=== PATIENT | female | born 1995 | race Caucasian/White ===

== ENCOUNTER 2016-11-14 16:49 | Emergency (ER) | payer BC ==
[~2016-11-14] VITALS: Ht 165.1 cm; Wt 53.4 kg
[~2016-11-14 16:49] MED LIST: BCPILLS PO; CEPH500C2 PO; SULF800T23 PO
[2016-11-14 16:55] VITALS: TEMP 36.6; Ht 165.1 cm; Wt 53.4 kg
[2016-11-14] MEDS ORDERED: HYDR-5688 PO (17:27)
[2016-11-14] MEDS ORDERED: SULF800T23 PO (17:32)
[2016-11-14 17:38] VITALS: BP 124/78; PULSE 69; O2SAT 97
--- NOTE | 2016-11-15 15:28 | EMERGENCY ROOM VISIT NOTE ---
ED Visit Note First contact with patient: 16:59 CHIEF COMPLAINT: I think I have an abscess in my right armpit. HISTORY OF PRESENT ILLNESS: Ms. Arreola is an 20-year-old white female who ambulates into the ED accompanied by a male friend concerned about a possible abscess in the right axillary area. Historically patient reports she had abscess in the right axillary area in September 2016. An I&D procedure was performed and on her microbiology she grew out MRSA. Additionally patient reports she was assessed at [facility] and was started on Bactrim 2 days ago. Patient reports 4 days ago she noticed a small lump in the right axillary area. Since that time she reports it feels like its getting larger and is much more tender. Additionally she noted some mild erythema over the lump. Currently she describes her pain as a stinging sensation that becomes sharp with palpation. She rates her discomfort 7/10. Her pain is nonradiating. Her pain worsens with palpation. She has not identified any alleviating factors related to the pain. She has not taken any medications for pain prior to arrival at the hospital. She denies any associated symptoms including fevers, chills, sweats, other skin eruptions, skin color changes, chest pain, shortness of breath, abdominal pain, decreased appetite, nausea, vomiting, right upper extremity weakness/numbness/tingling. REVIEW OF SYSTEMS: As noted above in History of Present Illness; 8 body systems were reviewed with the patient and found to be negative unless noted above otherwise. PAST MEDICAL HISTORY: As noted above, status post adenoidectomy. CURRENT MEDICATION: control, Bactrim. ALLERGIES TO MEDICATION: Patient denies. 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 PHYSICAL EXAM: Vital Signs: Date Time Temp Pulse Resp B/P Pulse Ox O2 Delivery O2 Flow Rate FiO2 11/14/16 17:38 69 16 124/78 97 11/14/16 16:55 36.6 76 18 120/82 95 Room Air General: 20 year-old white female in mild distress due to pain, nontoxic appearing, afebrile and hemodynamically stable. Neurological: Awake, alert and oriented to person, place and time. Answering questions appropriately and following commands. Skin: Warm, dry and pink. Right Axillary Area: There is an indurated area which measures about 3.8 cm in diameter. The lesion is not fluctuant. There is no pointing or drainage. Area is mildly erythematous but not edematous. Skin does not appear cellulitic. No lymphangitis. No local lymphadenopathy. Thorax: Lungs sounds are clear to auscultation and equal bilaterally with symmetrical chest wall movement. No wheezing, rales or rhonchi. No increased respiratory effort. Abdomen: Flat, soft and nontender. Positive bowel sounds in all quadrants. No guarding or rigidity. ED COURSE: Patient is assessed as noted above. Patient was educated about her condition and instructed on her treatment plan; she verbalized understanding and agreement with this plan. CLINICAL IMPRESSION: Early right axillary abscess. DISPOSITION: Patient discharged to home in stable condition accompanied by male friend; prior to departure she was reassessed and subjectively reported she was feeling the same. PLAN: Patient was encouraged to continue Bactrim until completed. Patient was given a prescription for [place] for pain control and encouraged to alternate with ibuprofen. Additionally on narcotic prescriptions were reviewed with the patient. Her name was reviewed in a state database and no red flags were identified. Patient is to follow-up with S or return to the ED in 36-48 hours for recheck of the abscess or sooner for worsening/uncontrolled pain, fevers, increasing redness/swelling, puslike drainage or any new/concerning symptoms.
== END 2016-11-14 17:39 | disposition home or self-care (01) ==
LOC: C.EDC 17:10
DX: L02.411 Cutaneous abscess of right axilla (principal); Z98.890 Other specified postprocedural states

== ENCOUNTER 2017-11-22 18:27 | Emergency (ER) | payer BC ==
[~2017-11-22] VITALS: Ht 162.6 cm; Wt 53.8 kg
[~2017-11-22 18:27] MED LIST changes: -CEPH500C2 PO
[2017-11-22 18:56] VITALS: BP 113/73; PULSE 89; TEMP 37.1; O2SAT 99; Ht 162.6 cm; Wt 53.8 kg
== END 2017-11-22 19:45 | disposition left against medical advice (07) ==
LOC: C.EDB 18:28 → C.EDC 19:45
DX: Z53.21 Procedure and treatment not carried out due to patient leaving prior to being seen by health care provider (principal)

== ENCOUNTER 2017-11-23 14:58 | Emergency (ER) | payer BC ==
[~2017-11-23] VITALS: Ht 162.6 cm; Wt 53.5 kg
[2017-11-23 15:03] VITALS: TEMP 36.8; Ht 162.6 cm; Wt 53.5 kg
--- NOTE | 2017-11-23 15:21 | EMERGENCY ROOM VISIT NOTE ---
History First contact with patient: 15:08 Chief Complaint: CONGESTION Stated Complaint: SORE NECK ,COLD SX History of Present Illness The patient is a 21 year old female who presents to the Emergency Room via private vehicle accompanied by female with complaints of "sore neck, cold symptoms". The patient states that about 1 week ago she began with upper respiratory infection symptoms such as stuffy nose and cough. She states that 3 days ago she had fever 1 day, and also to time began with neck stiffness, headache, and back pain. She states that now she is feeling better, but rates the overall soreness in her neck and back as a 4/10. There is no production to the cough and no cough currently. There is no sore throat. She denies any medical problems. Her immunizations are up-to-date. She did not receive the influenza vaccination this year. There is minimal nausea. She associates minimal lower abdominal cramping this morning which she believes secondary to beginning her menstrual cycle. She denies any smoking, coughing up any blood, close contacts with meningitis, history of meningitis, or chest pain. Review of Systems A complete 10-point Review of Systems was discussed with the patient, with pertinent positives and negatives listed in the History of Present Illness. All remaining Review of Systems questions can be considered negative unless otherwise specified. Past Medical/Surgical History non contributory Family History non contributory Social History Smoking Status: Never Smoker Pt. lives locally and is a student Current/Historical Medications Scheduled Control Pills ( Control Pills), 1 TAB PO DAILY Physical Exam Vital Signs Date Time Temp Pulse Resp B/P (MAP) Pulse Ox O2 Delivery O2 Flow Rate FiO2 11/23/17 16:37 74 18 108/70 97 Room Air 11/23/17 15:36 Room Air 11/23/17 15:03 36.8 76 20 109/69 98 Room Air Physical Exam VITAL SIGNS - Vital signs and nursing notes were reviewed. Stable. GENERAL - 21-year-old female appearing her stated age who is in no acute distress. Communicates well with provider and answers questions appropriately. SKIN - Without rashes. HEAD - NC/AT. EYES - PERRL with EOMI bilaterally. Sclera anicteric. EARS - No deformities of external structures noted on gross examination bilaterally. No pain elicited with palpation of the tragus bilaterally. External auditory canals without discharge or otorrhea. Tympanic membranes pearly aguirre without retraction or bulging. No fluid or purulent material visualized behind the TM. Handle of malleus, umbo, cone of light, pars tensa/ flaccid all easily visualized. NOSE - Midline and without cyanosis. No epistaxis or purulent drainage noted. Septum midline without deviation or septal hematoma noted. MOUTH/OROPHARYNX - Without perioral cyanosis. Buccal mucosa pink and moist and without leukoplakia. Tongue midline with equal elevation of palate bilaterally. No tonsillar hypertrophy, erythema, or exudates noted. Fair dentition noted. NECK - Neck with FROM. Supple to palpation. minimal anterior cervical lymphadenopathy noted. No nuchal rigidity. LUNGS - Chest wall symmetric without accessory muscle use, intercostals retractions, or central cyanosis. Normal vesicular breath sounds CTA B/L. No wheezes, rales, or rhonchi appreciated. CARDIAC - RRR with S1/S2. No murmur, rubs, or gallops appreciated. NEUROLOGIC - Cranial nerves II through XII grossly intact. Sensory intact to light touch throughout. PSYCH - A&O, and cooperates fully with examiner. Pt is very pleasant and interacts well with examiner. Medical Decision & Procedures Laboratory Results 11/23/17 15:29 Red Blood Count 4.33, Mean Corpuscular Volume 91.5, Mean Corpuscular Hemoglobin 30.7, Mean Corpuscular Hemoglobin Concent 33.6, Mean Platelet Volume 10.1, Neutrophils (%) (Auto) 51.7, Lymphocytes (%) (Auto) 31.4, Monocytes (%) (Auto) 14.5, Eosinophils (%) (Auto) 2.1, Basophils (%) (Auto) 0.3, Neutrophils # (Auto ) 1.71, Lymphocytes # (Auto) 1.04, Monocytes # (Auto) 0.48, Eosinophils # (Auto ) 0.07, Basophils # (Auto) 0.01 11/23/17 15:29 Test 11/23/17 15:27 11/23/17 15:29 11/23/17 15:55 Influenza Type A Antigen Neg for Influ A (NEG) Influenza Type B Antigen Neg for Influ B (NEG) White Blood Count 3.31 K/uL (4.8-10.8) Red Blood Count 4.33 M/uL (4.2-5.4) Hemoglobin 13.3 g/dL (12.0-16.0) Hematocrit 39.6 % (37-47) Mean Corpuscular Volume 91.5 fL (80-100) Mean Corpuscular Hemoglobin 30.7 pg (25-34) Mean Corpuscular Hemoglobin Concent 33.6 g/dl (32-36) Platelet Count 145 K/uL (130-400) Mean Platelet Volume 10.1 fL (7.4-10.4) Neutrophils (%) (Auto) 51.7 % Lymphocytes (%) (Auto) 31.4 % Monocytes (%) (Auto) 14.5 % Eosinophils (%) (Auto) 2.1 % Basophils (%) (Auto) 0.3 % Neutrophils # (Auto) 1.71 K/uL (1.4-6.5) Lymphocytes # (Auto) 1.04 K/uL (1.2-3.4) Monocytes # (Auto) 0.48 K/uL (0.11-0.59) Eosinophils # (Auto) 0.07 K/uL (0-0.5) Basophils # (Auto) 0.01 K/uL (0-0.2) RDW Standard Deviation 42.1 fL (36.4-46.3) RDW Coefficient of Variation 12.3 % (11.5-14.5) Immature Granulocyte % (Auto) 0.0 % Immature Granulocyte # (Auto) 0.00 K/uL (0.00-0.02) Anion Gap 7.0 mmol/L (3-11) Est Creatinine Clear Calc Drug Dose 78.1 ml/min Estimated GFR () 97.4 Estimated GFR (Non- 84.1 BUN/Creatinine Ratio 13.0 (10-20) Calcium Level 8.8 mg/dl (8.5-10.1) Total Bilirubin 0.2 mg/dl (0.2-1) Aspartate Amino Transf (AST/SGOT) 13 U/L (15-37) Alanine Aminotransferase (ALT/SGPT) 16 U/L (12-78) Alkaline Phosphatase 46 U/L (45-117) Total Creatine Kinase 49 U/L (26-192) Creatine Kinase MB < 0.5 ng/ml (0.5-3.6) Creatine Kinase MB Ratio (0-3.0) Total Protein 7.2 gm/dl (6.4-8.2) Albumin 3.5 gm/dl (3.4-5.0) Globulin 3.7 gm/dl (2.5-4.0) Albumin/Globulin Ratio 0.9 (0.9-2) Urine Color YELLOW Urine Appearance CLEAR (CLEAR) Urine pH 6.5 (4.5-7.5) Urine Specific [place] 1.033 (1.000-1.030) Urine Protein 1+ (NEG) Urine Glucose (UA) NEG (NEG) Urine Ketones TRACE (NEG) Urine Occult Blood NEG (NEG) Urine Nitrite NEG (NEG) Urine Bilirubin NEG (NEG) Urine Urobilinogen NEG (NEG) Urine Leukocyte Esterase NEG (NEG) Urine WBC (Auto) 5-10 /hpf (0-5) Urine RBC (Auto) 0-4 /hpf (0-4) Urine Hyaline Casts (Auto) 1-5 /lpf (0-5) Urine Epithelial Cells (Auto) >30 /lpf (0-5) Urine Bacteria (Auto) 1+ (NEG) Urine Renal Epithelial Cells /lpf (0-5) Urine Test NEG (NEG) Medical Decision Pt. was seen and evaluated as above. After obtaining a thorough history and physical examination blood was drawn, and the above workup was performed. She is nontoxic on exam. She converses without difficulty. There is no evidence of meningitis on exam. She is able to fully move her head and neck. She is fully vaccinated. Benefits versus risk of obtaining chest x-ray was discussed, and given that her cough has now stopped, and there are no longer any fevers do not believe that this is warranted. CBC reveals white blood cell count low at 3.31. I favor this to be a viral process. Patient was informed upon this and is to follow-up with [facility] for repeat when she is feeling better to ensure that her white blood cell count returns normal. Chemistry panel reveals no evidence of kidney or liver failure. Urine reveals concentrated urine, trace ketones, white blood cells, and many epithelial cells with 1+ urine bacteria. I suspect this is likely a contaminated sample. Urine test is negative. Patient flu negative. She is reevaluated and again appears nontoxic. She was offered pain medication and declined. She does not appear to be dehydrated. I suspect she likely is experiencing a viral illness. She was offered lumbar puncture and declined. I do not believe that this time is warranted. She is to follow closely with [facility], but was educated upon management, educated upon worrisome symptoms in which to return, had questions answered prior to discharge, and was discharged home in good condition. In the evaluation and treatment of this patient following differential diagnoses entertained: Viral illness, pneumonia, meningitis, encephalitis, influenza, among others. Impression Primary Impression: Flu-like symptoms Departure Information Dispostion Home / Self-Care Condition GOOD Referrals [facility] (PCP) Patient Instructions My [facility] Additional Instructions You were seen in the emergency department for your cough, fever, sore neck, headache. Flu test negative. Urine showed a small amount of bacteria, but we will culture this and if it grows out a bacteria that needs to be treated you will be notified. For pain and fever control, you can use the following [id number] medicines : - Regular strength (325mg/tab) Tylenol (acetaminophen) 2 tabs every 4-6 hours as needed. Do not exceed 12 tablets in a 24 hour period. Avoid taking more than 3 grams (3000 mg) of Tylenol per day. This includes any other sources of acetaminophen you may take on a regular basis. - Regular strength (200 mg/tab) Advil (ibuprofen) 1-2 tabs every 4-6 hours as needed. Do not exceed a dose of 3200 mg per day. - For best results, alternate dosing of Tylenol and Advil. Return to the emergency department if your symptoms persist or worsen over the next 2-3 days despite treatment course outlined above. Return to the emergency department if you develop the following symptoms of: inability to swallow solids , liquids, or drool; excessive wheezing or inability to catch your breath; or intractable fever or pain. Follow up with your primary care provider in 2-3 days from today's emergency department visit.
[2017-11-23 15:47] LABS: BASO % 0.3 %; BASO ABS # 0.01 K/uL (0-0.2); EOS % 2.1 %; EOS ABS # 0.07 K/uL (0-0.5); HEMATOCRIT 39.6 % (37-47); HEMOGLOBIN 13.3 g/dL (12.0-16.0); LYMPH % 31.4 %; LYMPH ABS # 1.04 K/uL (1.2-3.4); MEAN CELL VOLUME 91.5 fL (80-100); MEAN CORPUSCULAR HEMOGLOBIN 30.7 pg (25-34); MEAN CORPUSCULAR HGB CONC 33.6 g/dl (32-36); MEAN PLATELET VOLUME 10.1 fL (7.4-10.4); MONO % 14.5 %; MONO ABS # 0.48 K/uL (0.11-0.59); NEUT % 51.7 %; NEUT ABS # 1.71 K/uL (1.4-6.5); PLATELET COUNT 145 K/uL (130-400); RED CELL DISTRIBUTION WIDTH CV 12.3 % (11.5-14.5); RED CELL DISTRIBUTION WIDTH SD 42.1 fL (36.4-46.3); WHITE BLOOD COUNT 3.31 K/uL (4.8-10.8)
[2017-11-23 16:06] LABS: INFLUENZA B ANTIGEN Neg for Influ B (NEG)
[2017-11-23 16:08] LABS: ALBUMIN 3.5 gm/dl (3.4-5.0); ALT/SGPT 16 U/L (12-78); BLOOD UREA NITROGEN 13 mg/dl (7-18); CALCIUM 8.8 mg/dl (8.5-10.1); CARBON DIOXIDE 26 mmol/L (21-32); CREATININE 0.97 mg/dl (0.60-1.20); GLUCOSE 79 mg/dl (70-99); POTASSIUM 4.3 mmol/L (3.5-5.1); SODIUM 137 mmol/L (136-145)
[2017-11-23 16:13] LABS: ALKALINE PHOSPHATASE 46 U/L (45-117); AST/SGOT 13 U/L (15-37); CKMB < 0.5 ng/ml (0.5-3.6); TOTAL PROTEIN 7.2 gm/dl (6.4-8.2)
[2017-11-23 16:37] VITALS: BP 108/70; PULSE 74; O2SAT 97
== END 2017-11-23 16:39 | disposition home or self-care (01) ==
LOC: C.EDB 15:02
DX: R69 Illness, unspecified (principal)